=== PATIENT | male | born 1990 | race Caucasian/White ===

== ENCOUNTER 2017-08-01 13:44 | Observation (INO) | payer MEDICAID ==
[2017-08-01] MEDS ORDERED: ONDANSETRON HCL INJ/PF 4 MG/2 ML SDV IV ONE (15:16)
[2017-08-01] MEDS ORDERED: RINGERS SOLUTION,LACTATED 1,000 ML IV ONE (15:16)
--- NOTE | 2017-08-01 15:16 | ER Document Report ---
ED General - General Mode of Arrival: Ambulatory Information source: Patient TRAVEL OUTSIDE OF THE [place] IN LAST 30 DAYS: No <LINDA PLASCENCIA - Last Filed: 08/01/17 17:13> <FE LEWIS - Last Filed: 08/02/17 00:52> - General Chief Complaint: Vomiting Stated Complaint: VOMITING Time Seen by Provider: 08/01/17 15:06 Notes: Patient is a 26-year-old male with a history of intracranial hemorrhage at with cerebral palsy who presents to the emergency department today with complaints of an episode of "appearing pale, almost waxy" with associated projectile vomiting x2. Caregiver at bedside states the patient's vomit was brown in color. Caregiver states the patient's blood pressure was 88/54 and his systolic pressures are usually in the 100s. Caregiver states the patient had a cough yesterday and was given Robitussin. Caregiver mentions that the patients abdomen is distended, she goes on to state that the patient has had bouts of constipation in the past but he did have a normal bowel movement this morning at 0600. Caregiver denies any fevers. (LINDA PLASCENCIA) - Related Data Allergies/Adverse Reactions: Penicillins Adverse Reaction (Mild, Verified 03/04/16 15:48) Sulfa (Sulfonamide Antibiotics) Adverse Reaction (Verified 03/04/16 15:48) Past Medical History - General Information source: [facility] Records, Outside Facility Records - caregiver at bedside - Social History Smoking Status: Never Smoker Cigarette use (# per day): No Frequency of alcohol use: None Drug Abuse: None Lives with: Jail - [facility] Family History: Reviewed & Not Pertinent Neurological Medical History: Reports: Hx Seizures - Tonic-clonic GI Medical History: Reports: Hx Hiatal Hernia Past Surgical History: Reports: Hx Abdominal Surgery - shunt drain removed from abdomen, Hx Neurologic Surgery - shunt for stage IV brain bleed, Hx Orthopedic Surgery - bilateral hip surgery, Hx Tonsillectomy - Immunizations Hx Diphtheria, Pertussis, Tetanus Vaccination: Yes <LINDA PLASCENCIA - Last Filed: 08/01/17 17:13> Review of Systems - Review of Systems Constitutional: denies: Fever EENT: No symptoms reported Cardiovascular: See HPI, Other - hypotensive Respiratory: See HPI, Cough Gastrointestinal: See HPI, Abdomen distended, Vomiting Genitourinary: No symptoms reported Male Genitourinary: No symptoms reported Musculoskeletal: No symptoms reported Skin: No symptoms reported Hematologic/Lymphatic: No symptoms reported Neurological/Psychological: No symptoms reported -: Yes All other systems reviewed and negative <LINDA PLASCENCIA - Last Filed: 08/01/17 17:13> <FE LEWIS - Last Filed: 08/02/17 00:52> - Review of Systems Notes: given by caregiver at bedside (LINDA PLASCENCIA) Physical Exam <LINDA PLASCENCIA - Last Filed: 08/01/17 17:13> <FE LEWIS - Last Filed: 08/02/17 00:52> - Vital signs Vitals: Resp 16 08/01/17 14:09 - Notes Notes: PHYSICAL EXAM GENERAL: Awake. Neurologically at baseline according to caregiver. No acute distress. HEAD: Normocephalic, atraumatic. Palpable shunt which does not seem to cause distress with palpation. EYES: Pupils equal, round, and reactive to light. Extraocular movements intact. Dark circles under eyes bilaterally. Disconjugate gaze. ENT: Oral mucosa moist, tongue midline. NECK: Full range of motion. Supple. Trachea midline. LUNGS: Clear to auscultation bilaterally, no wheezes, rales, or rhonchi. No respiratory distress. HEART: Tachycardic, regular rhythm. No murmurs, gallops, or rubs. ABDOMEN: Semi-firm, distended, hyperactive bowel sounds present in all 4 quadrants, some tympany, no apparent tenderness with palpation. No guarding, rigidity, or rebound. EXTREMITIES: Contractures to bilateral upper extremities with spontaneous movement bilaterally, wiggles toes spontaneously, chronic deformity of right ankle, similar but less pronounced deformity of left ankle. No edema, radial and dorsalis pedis pulses 2/4 bilaterally. No cyanosis. NEUROLOGICAL: At baseline according to caregiver. Moment of speech which is incomprehensible. PSYCH: Baseline according to caregiver at bedside SKIN: Warm, dry, normal turgor. No rashes or lesions noted. (LINDA PLASCENCIA) Course <LINDA PLASCENCIA - Last Filed: 08/01/17 17:13> - Laboratory Result Diagrams: 08/01/17 17:13 08/01/17 17:13 <FE LEWIS - Last Filed: 08/02/17 00:52> - Re-evaluation Re-evalutation: 08/01/17 21:24 CBC shows slight leukocytosis 11.4, mild anemia at 13.0 hemoglobin, platelets low at 125, chemistries unremarkable with the exception of an elevated glucose at 311, acute abdominal series shows gas distended loops of small and large bowel presumably representing ileus, no definite obstruction. CT scan of the abdomen and pelvis is limited by motion however it shows a large amount of distal colonic stool. Patient was to have a soapsuds and mineral oil enema here however he is in hallway beds we cannot perform there. Patient does live in a custodial with an [employer] SPECIALIST. At this time as the patient has been waiting several hours to have this performed the caregiver would like to know if they could do the enema at the custodial. As he has medical staff there I am willing to let them try an enema , if it improves his symptoms and they get a large amount of stool out patient may stay home with MiraLAX once a day otherwise they should return if there is no stool, the vomiting worsens, he develops fevers or there are any new or concerning symptoms. 08/01/17 22:43 Patient been given Reglan for his nausea, patient is now tachycardic and appears somewhat anxious, moving around in the bed. Due to the tachycardia patient will not be discharged home at this time. He has his Lamictal. Patient will be given his Lamictal, patient will stay until we have done the enema and he has been rechecked, if his tachycardia and discomfort resolves he will still be discharged, if it persists we will consult surgery. 08/02/17 00:02 Patient has been given Benadryl, is now sleeping, no longer in any distress, given enema, awaiting results. 08/02/17 00:40 Patient rechecked, still sleeping, no distress, abdominal palpation patient does not have any tenderness, does not wake up during abdominal examination. There is a large firm mass in the center his abdomen that I initially thought was stool but nurses at bedside state that that is always there and a neurosurgeon has actually told him that as his spine from such a severe curvature. Rectal examination was performed at this time as the patient received the enema but has not had any bowel movement. Minimal amount of soft stool was found but no impaction, nerve no firm stool, no indication for disimpaction. Given the distention on his CAT scan I am concerned for discharging this patient home particularly with the projectile vomiting. I have consulted with Dr. Mosley the surgeon on-call who agrees to come to the emergency department and consult on this patient. 08/02/17 00:51 He recommends given magnesium citrate and Dulcolax suppositories, he will continue to monitor the patient. (FE LEWIS) - Vital Signs Vital signs: Temp Pulse Resp BP Pulse Ox 16 08/01/17 14:09 - Laboratory Laboratory results interpreted by me: 08/01/17 08/01/17 17:13 17:13 WBC 11.4 H Hgb 13.0 L MCV 74 L MCH 23.6 L MCHC 31.9 L RDW 16.8 H Plt Count 125 L Seg Neutrophils % 87.2 H Lymphocytes % 7.2 L Absolute Neutrophils 10.0 H Glucose 311 H Discharge <LINDA PLASCENCIA - Last Filed: 08/01/17 17:13> - Discharge Admitting Provider: Surgicalist - Dimitri Unit Admitted: Surgical Floor <FE LEWIS - Last Filed: 08/02/17 00:52> - Discharge Clinical Impression: Abdominal distension, Ileus Constipation Qualifiers: Constipation type: unspecified constipation type Qualified Code(s): K59.00 - Constipation, unspecified Vomiting Qualifiers: Vomiting type: unspecified Vomiting Intractability: non-intractable Nausea presence: unspecified Qualified Code(s): R11.10 - Vomiting, unspecified Condition: Fair Disposition: ADMITTED OBSERVATION Additional Instructions: If after you give him the soapsuds and mineral oil enema at home he does not have a bowel movement you should return to the emergency department. Please also return should he develop further vomiting, any fevers or worsening abdominal pain. Constipation Constipation is a common problem. Constipation is a common cause of abdominal pain, but sometimes causes no symptoms at all. Causes of constipation include certain medications, dehydration, diets, inactivity, and low-fiber intake. Rarely, it can be a symptom of underlying disease. The physician has evaluated you for this. Avoid constipation by eating a diet high in fiber, fruits, and vegetables. Drink plenty of liquids. If possible, avoid constipating medicines like narcotic pain medication. Some vitamin tablets can cause constipation. Stool softeners may be needed for difficult cases. Please dissolve 1 scoop of MiraLAX in a glass of water once a day to treat constipation. You may increase to twice a day if needed to create soft bowel movements and you may decrease to every other day if you develop diarrhea. This can be used daily. Laxatives are useful for occasional constipation. You should use them only when necessary. Too-frequent use can make your bowels dependent on them. Some over the counter laxatives available without prescription are: Milk of Magnesia, 1-2 tablespoons twice a day Dulcolax, 5 mg pill or 10 mg suppository. Citrate of Magnesia, 4-5 ounces a day for a day or two For acute constipation, Fleet's Enemas and Dulcolax suppositories are helpful. Chronic, prison use of laxatives or enemas is not a good idea. Your bowel may become dependant on them. You do not need to have a bowel movement every day. Many people do fine with a bowel movement every three or four days. You should call your doctor or return for re-evaluation if you pass blood in the stool, or if you develop fever or increasing abdominal pain. Referrals: DASH BARILLAS MD [Primary Care Provider] - Follow up in 3-5 days Scribe Documentation - Scribe Written by Arsen:: Arsen Fiore, 08/01/2017 1711 acting as scribe for :: Zoe <LINDA PLASCENCIA - Last Filed: 08/01/17 17:13>
--- NOTE | 2017-08-01 15:57 | RADIOLOGY REPORT (SQ) ---
EXAM DESCRIPTION: ACUTE ABDOMEN SERIES COMPLETED DATE/TIME: 08/01/2017 3:48 pm REASON FOR STUDY: abd distention, possible SBO, vomiting COMPARISON: 01/26/2015 NUMBER OF VIEWS: Three views. TECHNIQUE: Frontal chest, supine abdomen and upright/decubitus abdomen radiographic images acquired. LIMITATIONS: Patient positioning. FINDINGS: CHEST: Lungs clear of infiltrates. FREE AIR: None. No abnormal gas collections. BOWEL GAS PATTERN: Gas distended loops of both small and large bowel. No definite air-fluid levels. CALCIFICATIONS: No suspicious calcifications. HARDWARE: SALES CLERK SUPERVISOR shunt catheter. SOFT TISSUES: No gross mass or suggestion of organomegaly. BONES: No acute fracture. No worrisome bone lesions. OTHER: No other significant finding. IMPRESSION: GAS DISTENDED LOOPS OF SMALL AND LARGE BOWEL PRESUMABLY REPRESENTING ILEUS. NO DEFINITE OBSTRUCTION. TECHNICAL DOCUMENTATION: JOB ID: [id number] [employer]- All Rights Reserved
[2017-08-01 17:36] LABS: ABSOLUTE LYMPHOCYTES (AUTO) 0.8 10^3/uL (0.5-4.7); ABSOLUTE MONOCYTES (AUTO) 0.6 10^3/uL (0.1-1.4); BASOPHILS % (AUTO) 0.4 % (0-2); EOSINOPHILS % (AUTO) 0.2 % (0-6); HEMATOCRIT 40.9 % (37.9-51.0); LYMPHOCYTES % (AUTO) 7.2 % (13-45); MEAN CORPUSCULAR HEMOGLOBIN 23.6 pg (27.0-33.4); MEAN CORPUSCULAR HGB CONC 31.9 g/dL (32.0-36.0); MEAN CORPUSCULAR VOLUME 74 fl (80-97); PLATELET COUNT 125 10^3/uL (150-450); RED BLOOD COUNT 5.51 10^6/uL (4.35-5.55); RED CELL DISTRIBUTION WIDTH 16.8 % (11.5-14.0); SEGMENTED NEUTROPHILS % (AUTO) 87.2 % (42-78); TOTAL CELLS COUNTED % (AUTO) 100 %; WHITE BLOOD COUNT 11.4 10^3/uL (4.0-10.5)
[2017-08-01 17:39] LABS: ALANINE AMINOTRANSFERASE 26 U/L (21-72); ALBUMIN 4.3 g/dL (3.5-5.0); ALKALINE PHOSPHATASE 111 U/L (38-126); ANION GAP 11 (5-19); ASPARTATE AMINO TRANSFERASE 33 U/L (17-59); BILIRUBIN,DIRECT 0.3 mg/dL (0.0-0.4); BILIRUBIN,TOTAL 0.3 mg/dL (0.2-1.3); BLOOD UREA NITROGEN 15 mg/dL (7-20); CALCIUM 9.9 mg/dL (8.4-10.2); CARBON DIOXIDE 29 mmol/L (22-30); CHLORIDE 103 mmol/L (98-107); GLUCOSE 311 mg/dL (75-110); POTASSIUM 3.6 mmol/L (3.6-5.0); SODIUM 143.1 mmol/L (137-145); TOTAL PROTEIN 7.5 g/dL (6.3-8.2)
--- NOTE | 2017-08-01 18:26 | RADIOLOGY REPORT (SQ) ---
EXAM DESCRIPTION: CT ABD/PELVIS WITH IV ORAL COMPLETED DATE/TIME: 08/01/2017 6:12 pm REASON FOR STUDY: abd distention, suspect SBO COMPARISON: Radiographs from earlier. TECHNIQUE: CT scan of the abdomen and pelvis performed using helical scanning technique with dynamic intravenous contrast injection. No oral contrast. Images reviewed with lung, soft tissue, and bone windows. Reconstructed coronal and sagittal MPR images reviewed. Delayed images for evaluation of the urinary system also acquired. All images stored on PACS. All CT scanners at this facility use dose modulation, iterative reconstruction, and/or weight based d osing when appropriate to reduce radiation dose to as low as reasonably achievable (ALARA). [facility]: Dose Right [facility]: CareDose [facility]: Dose Right [facility]: Teradose 4D [facility]: Ntractive CONTRAST TYPE AND DOSE: contrast/concentration: Isovue 370.00 mg/ml; Total Contrast Delivered: 74.0 ml; Total Saline Delivered: 66.0 ml RENAL FUNCTION: None required. The patient is less than 50 years old. RADIATION DOSE: CT Rad equipment meets quality standard of care and radiation dose reduction techniq ues were employed. CTDIvol: 10.9 - 14.1 mGy. DLP: 1171 mGy-cm.. LIMITATIONS: Arm positioning over the lower chest. Mild motion. Overall moderate limitation. FINDINGS: LOWER CHEST: Small left pleural effusion. Sizable hiatal hernia with gastric distention g enerally. LIVER: No gross lesion. SPLEEN: No gross lesion. PANCREAS: Generally normal. GALLBLADDER: Surgically absent. ADRENAL GLANDS: Poorly seen, no gross mass. RIGHT KIDNEY AND URETER: No obstruction. LEFT KIDNEY AND URETER: No obstruction. AORTA AND VESSELS: No gross arterial occlusion or aortic aneurysm or dissection evident. No suggesti on of venous clot. RETROPERITONEUM: No retroperitoneal adenopathy, hemorrhage or masses. BOWEL AND PERITONEAL CAVITY: Gastric distention. Numerous fluid-filled loops of small bowel. This l ooks relatively diffuse including into the distal small bowel. As above, motion limits. There is fl uid in the proximal colon with a large amount of formed stool in the redundant distal colon. APPENDIX: Normal. PELVIS: No free fluid. Bladder looks relatively unremarkable. ABDOMINAL WALL: No hernia or mass detected. BONES: Pronounced scoliosis and dysplastic appearance of pelvis. 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 No fracture identified. No worrisome bone lesion. OTHER: No other significant finding. IMPRESSION: 1. Limited. 2. As seen radiographically, ileus is suspected. Although obstruction is a possibility, no clear point of obstruction is identified allowing for the limitations. Of note, th ere is a large amount of distal colonic stool. TECHNICAL DOCUMENTATION: JOB ID: [id number] Quality ID # [id number]: Final reports with documentation of one or more dose reduction techniques (e.g., Au tomated exposure control, adjustment of the mA and/or kV according to patient size, use of iterative reconstruction technique) 2010 [employer]- All Rights Reserved
[2017-08-01] MEDS ORDERED: METOCLOPRAMIDE HCL INJ/PF 10 MG/2 ML SDV IV ONE (21:24)
[2017-08-01] MEDS ORDERED: MINERAL OIL 30 ML UDCUP PR ONE (21:45)
[2017-08-01] MEDS ORDERED: DIPHENHYDRAMINE HCL 50 MG/ML VIAL IV ONE (22:42)
[2017-08-02] MEDS ORDERED: BISACODYL 5 MG TABEC PO ONE (00:54)
[2017-08-02] MEDS ORDERED: MAGNESIUM CITRATE 296 ML BOTTLE PO ONE (00:54)
--- NOTE | 2017-08-02 01:18 | PDOC H&P ---
History of Present Illness Admission Date/PCP: DASH BARILLAS MD 08/02/17 Patient complains of: vomiting History of Present Illness: BLAIRE JAMESON is a 26 year old male mentally delayed male with CP brought to Er by caretakers with a hx of vomiting x 2 at home this afternoon. However, no vomiting witnessed by the nurses in the ER. Patient is non verbal and hx is obtained from caretakers. Last BM yesterday and today with soft stools. Abdominal obstructive views show possible ileus, CT scan A/P is negative for obstruction with fluid in stomach and small bowel as well as large amount of fecal matter in the distal colon; no free aor or free fluid. 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 Past Medical History Cardiac Medical History: Denies: Coronary Artery Disease, Myocardial Infarction, Hypertension Pulmonary Medical History: Denies: Asthma, Bronchitis, Chronic Obstructive Pulmonary Disease (COPD), Pneumonia Neurological Medical History: Reports: Seizures - Tonic-clonic GI Medical History: Reports: Hiatal Hernia Musculoskeltal Medical History: Reports: Other - cerebral palsy, mental retardation Denies: Arthritis Hematology: Reports: Anemia - ITP Past Surgical History Past Surgical History: Reports: Orthopedic Surgery - bilateral hip surgery, Tonsillectomy, Other - Ventricular-peritoneal shunt insertion Social History [facility]: [facility] Smoking Status: Never Smoker Family History Family History: Reviewed & Not Pertinent Parental Family History Reviewed: Yes Children Family History Reviewed: Yes Sibling(s) Family History Reviewed.: Yes Medication/Allergy Home Medications: Calcium Carbonate [Calcium] 500 mg PO DAILY 02/27/15 Clindamycin Phos/Skin Clnsr 19 [Clindacin Etz Kit] 1 applic TP DAILY 02/27/15 Diazepam [Diastat Acudial 10 Mg/2 Ml Rectal Gel] 10 mg ND ASDIR PRN 02/27/15 Lamotrigine [Lamictal 100 mg Tablet] 200 mg PO QHS 02/27/15 Polyethylene Glycol 3350 [Miralax Powder 17 gm/Packet] 1 packet PO DAILY Sennosides [Ex-Lax Maximum Relief] 2 tab PO ASDIR PRN 02/27/15 Omeprazole Magnesium [Prilosec Otc] 20 mg PO BID 02/29/16 Allergies/Adverse Reactions: Penicillins Adverse Reaction (Mild, Verified 03/04/16 15:48) Sulfa (Sulfonamide Antibiotics) Adverse Reaction (Verified 03/04/16 15:48) Physical Exam Vital Signs: Temp Pulse Resp BP Pulse Ox 16 08/01/17 14:09 General appearance: PRESENT: no acute distress, other - sleepy but arousable Respiratory exam: PRESENT: clear to auscultation ruperto Cardiovascular exam: PRESENT: RRR GI/Abdominal exam: PRESENT: distended, normal bowel sounds, soft, other - RUQ scar, palpable WAX COATING MACHINE TENDER shunt Neurological exam: PRESENT: other - Four extermity spasticity Results Laboratory Results: 08/01/17 17:13 08/01/17 17:13 18 08/01/17 17:13 17:13 WBC 11.4 H RBC 5.51 Hgb 13.0 L Hct 40.9 MCV 74 L MCH 23.6 L MCHC 31.9 L RDW 16.8 H Plt Count 125 L Seg Neutrophils % 87.2 H Lymphocytes % 7.2 L Monocytes % 5.0 Eosinophils % 0.2 Basophils % 0.4 Absolute Neutrophils 10.0 H Absolute Lymphocytes 0.8 Absolute Monocytes 0.6 Absolute Eosinophils 0.0 Absolute Basophils 0.0 Sodium 143.1 Potassium 3.6 Chloride 103 Carbon Dioxide 29 Anion Gap 11 BUN 15 Creatinine 0.61 Est GFR ( Amer) > 60 Est GFR (Non-Af Amer) > 60 Glucose 311 H Calcium 9.9 Total Bilirubin 0.3 AST 33 ALT 26 Alkaline Phosphatase 111 Total Protein 7.5 Albumin 4.3 Impressions: Abdomen/Pelvis CT 08/01/17 00:00 IMPRESSION: 1. Limited. 2. As seen radiographically, ileus is suspected. Although obstruction is a possibility, no clear point of obstruction is identified allowing for the limitations. Of note, there is a large amount of distal colonic stool. Acute Abdomen Series 08/01/17 15:16 IMPRESSION: GAS DISTENDED LOOPS OF SMALL AND LARGE BOWEL PRESUMABLY REPRESENTING ILEUS. NO DEFINITE OBSTRUCTION. Assessment & Plan - Diagnosis (1) Cerebral palsy, unspecified Is this a current diagnosis for this admission?: Yes (3) Vomiting Qualifiers: Vomiting type: unspecified Nausea presence: unspecified Qualified Code(s) : R11.10 - Vomiting, unspecified Is this a current diagnosis for this admission?: Yes - Plan Summary Plan Summary: A/ 26 y/o male with MR and CP recent vomiting at home x 2 reported by caretakers Stools yesterday and today X-ray of abdomen and CT scan A/P negative for surgical condition: large amount of stools identified in the distal colon No surgical condition identified at this point on physical exam as well P/ Insert NGT to decompress the stomach Mg Citrate 1 botel via NGT Dulcolax 20 mg po Dulcolax suppository
[2017-08-02] MEDS: BISACODYL 10 MG SUPP.RECT PR SCH ×2 (02:50→03:52)
[2017-08-02 04:54] LABS: AMORPHOUS SEDIMENT,URINE 1+ /HPF; APPEARANCE,URINE CLOUDY; BILIRUBIN,URINE NEGATIVE (NEGATIVE); COLOR,URINE YELLOW; GLUCOSE, URINE >=500 mg/dL (NEGATIVE); KETONES,URINE TRACE mg/dL (NEGATIVE); LEUKOCYTE ESTERASE,URINE NEGATIVE (NEGATIVE); NITRITE,URINE NEGATIVE (NEGATIVE); PROTEIN,URINE NEGATIVE (NEGATIVE); URINE SPECIFIC GRAVITY 1.021; UROBILINOGEN,URINE NEGATIVE mg/dL (<2.0)
--- NOTE | 2017-08-02 11:10 | PDOC PROGRESS REPORT ---
Subjective Progress Note for:: 08/02/17 Subjective:: comfortable; walker movement overnight, no vomiting, tolerating po Reason For Visit: CONSTIPATION,VOMITING,ABDOMINAL DISTENSION ILEUS Physical Exam Vital Signs: Temp Pulse Resp BP Pulse Ox 98.3 F 103 H 17 104/68 98 08/02/17 10:00 08/02/17 10:00 08/02/17 10:00 08/02/17 10:00 08/02/17 10:00 Intake & Output 08/01/17 08/02/17 08/03/17 06:59 06:59 06:59 Output Total 100 Balance -100 General appearance: PRESENT: no acute distress Head exam: PRESENT: atraumatic Respiratory exam: PRESENT: clear to auscultation ruperto Cardiovascular exam: PRESENT: RRR GI/Abdominal exam: PRESENT: soft Results Laboratory Results: 08/02/17 03:34 Urine Color YELLOW Urine Appearance CLOUDY Urine pH 7.0 Ur Specific [place] 1.021 Urine Protein NEGATIVE Urine Glucose (UA) >=500 H Urine Ketones TRACE H Urine Blood SMALL H Urine Nitrite NEGATIVE Ur Leukocyte Esterase NEGATIVE Urine RBC (Auto) 1 Impressions: Abdomen/Pelvis CT 08/01/17 00:00 IMPRESSION: 1. Limited. 2. As seen radiographically, ileus is suspected. Although obstruction is a possibility, no clear point of obstruction is identified allowing for the limitations. Of note, there is a large amount of distal colonic stool. Acute Abdomen Series 08/01/17 15:16 IMPRESSION: GAS DISTENDED LOOPS OF SMALL AND LARGE BOWEL PRESUMABLY REPRESENTING ILEUS. NO DEFINITE OBSTRUCTION. Assessment & Plan - Diagnosis (1) Cerebral palsy, unspecified Is this a current diagnosis for this admission?: Yes (3) Vomiting Qualifiers: Vomiting type: unspecified Nausea presence: unspecified Qualified Code(s) : R11.10 - Vomiting, unspecified Is this a current diagnosis for this admission?: Yes - Plan Summary Plan Summary: A/ resolved constipation po tolerated bowel movement overnight P/ d/c to NH today no General Surgery f/u needed resume meds, diet can bath/shower
--- NOTE | 2017-08-02 11:49 | DISCHARGE SUMMARY E ---
Discharge Summary NAME: BLAIRE JAMESON : 1990 AGE: 26Y ADMITTED: 08/02/2017 DISCHARGED: 08/02/2017 FINAL DIAGNOSES: 1. Fecal impaction. 2. CEREBRAL PALSY. 3. MENTAL RETARDATION. PROCEDURES: None. HOSPITAL COURSE: This is a 26-year-old mentally retarded male with cerebral palsy who came to the hospital with a history of emesis, and a CAT scan of the abdomen and pelvis was done revealing a large amount of fecal matter in the colon. The patient was admitted and a nasogastric tube was inserted. The patient was given magnesium citrate p.o. together with Dulcolax and Dulcolax suppositories, and his bowels moved overnight and able to tolerate po well. The patient was therefore discharged the following day in satisfactory condition. DISCHARGE ORDERS: The patient will discharge to the [facility] on 08/02/2017. He was given his preadmission medications. He was given his regular diet. No followup needed with the Surgery Clinic. Activity as tolerated. The patient can shower or bathe. DICTATING PHYSICIAN: VENICE BAILEY M.D. [id number] PHY#: [id number] ID: [id number] JOB#: [id number] ACCT: [id number] cc:Cara RAMÍREZ M.D. [facility], > [facility]
[2017-08-02 13:29] VITALS: BP 110/64
== END 2017-08-02 11:13 | disposition home health service (06) ==
LOC: ER 13:44 → EH 08-02 00:57
PROVIDERS: ATTEND Surgery
DX: K56.41 Fecal impaction (principal); G80.9 Cerebral palsy, unspecified; F79 Unspecified intellectual disabilities; I95.9 Hypotension, unspecified; D64.9 Anemia, unspecified; R73.09 Other abnormal glucose; R00.0 Tachycardia, unspecified; G40.89 Other seizures; Z79.899 Other long term (current) drug therapy; Z98.890 Other specified postprocedural states; Z87.820 Personal history of traumatic brain injury; Z98.2 Presence of cerebrospinal fluid drainage device
CPT/HCPCS: 99285; 96361; 96374; 96375; 36415; 85025; 80053; 81001; 74022; 74177; J3490 ×3; J1200; J2765; J2405; J7120

== ENCOUNTER → 2018-03-16 | Outpatient (CLI) | payer MEDICAID ==
--- NOTE | 2018-03-16 15:11 | RADIOLOGY REPORT (SQ) ---
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 Images reviewed wi th bone, brain and subdural windows. Additional sagittal and coronal reconstructions were generated. Images stored on PACS. All CT scanners at this facility use dose modulation, iterative reconstruction, and/or weight based d osing when appropriate to reduce radiation dose to as low as reasonably achievable (ALARA). [facility]: Dose Right [facility]: CareDose [facility]: Dose Right [facility]: Teradose 4D [facility]: Surgimatix RADIATION DOSE: CT Rad equipment meets quality standard of care and radiation dose reduction techniq ues were employed. CTDIvol: 21.4 - 21.5 mGy. DLP: 799 mGy-cm. mGy. LIMITATIONS: Motion artifact throughout the study. FINDINGS: There is motion artifact throughout the study. Patient has a left parietal intraventricular drainage catheter, with the tip near the foramen of Monr o anterior 3rd ventricle. The lateral and 3rd ventricles are slit-like, unchanged from 04/29/2016. No CT evidence of acute intracranial hemorrhage, gross mass effect or midline shift. Agenesis of the corpus callosum. IMPRESSION: Very limited study due to patient motion artifact. No change in position of the left pa rietal intraventricular drainage catheter or configuration of slit-like lateral and 3rd ventricles. EVIDENCE OF ACUTE STROKE: NO. COMMENT: Quality ID # [id number]: Final reports with documentation of one or more dose reduction techniques (e.g., Automated exposure control, adjustment of the mA and/or kV according to patient size, use of iterative reconstruction technique) TECHNICAL DOCUMENTATION: JOB ID: [id number] [employer]- All Rights Reserved Reading location - IP/workstation name: [email or web address]
== END ==
LOC: RAD 08:50
PROVIDERS: ATTEND Physician Assistant
DX: G91.9 Hydrocephalus, unspecified (principal)
CPT/HCPCS: 70450

== ENCOUNTER 2019-02-22 15:49 | Day surgery (SDC) | payer MEDICAID ==
[2019-02-22] MEDS ORDERED: ONDANSETRON HCL INJ/PF 4 MG/2 ML SDV ONE (16:24)
[2019-02-22] MEDS ORDERED: DIPHENHYDRAMINE HCL 50 MG/ML VIAL ONE (16:24)
[2019-02-22] MEDS ORDERED: FLUMAZENIL INJ 0.5 MG/5 ML VIAL ONE (16:25)
[2019-02-22] MEDS ORDERED: GLUCAGON,HUMAN RECOMB 1 MG INJ ONE (16:25)
[2019-02-22] MEDS ORDERED: EPINEPHRINE INJ 1 MG/10 ML DISP.SYRIN ONE (16:25)
[2019-02-22] MEDS ORDERED: NALOXONE HCL INJ/PF 0.4 MG/1 ML SDV ONE (16:25)
[2019-02-22] MEDS: MIDAZOLAM 2 MG/2 ML INJ ONE ×2 (16:54→17:03)
[2019-02-22] MEDS: FENTANYL CITRATE INJ/PF 100 MCG/2 ML AMPUL ONE ×3 (16:56→17:30)
--- NOTE | 2019-02-22 17:57 | Operative Report ---
Operative Report DATE OF SURGERY: 02/22/19 Operative Report: Pre-op diagnosis: History of colon polyps Post-op diagnosis: 1. Distal transverse colon polyp 2. Redundant and twisted colon. 3. Dilated colon. Surgery: Colonoscopy with polypectomy Medications: Versed 2mg, Fentanyl 75mcg IV push Tissue removed: Colon polyp Procedure: After informed consent obtained from patient, conscious sedation was achieved. A digital rectal examination was performed and this was unremarkable. The colonoscope was inserted into the rectum and advanced to the cecum. The appendiceal orifice and the terminal ileum were both identified. The mucosa was examined into details as the colonoscope was slowly pulled out of the patient. The endoscope was retroflexed in the rectum. Patient tolerated the procedure well. Findings Cecum: Markedly dilated Ascending colon: Dilated Transverse colon: 12 to 15 mm polyp noted at the distal transverse colon around the splenic flexure. This area was previously tattooed. Polyp was removed with a hot snare Descending colon: Dilated Sigmoid colon: Normal Rectum: Normal except for internal hemorrhoids Plan: Await pathology. Repeat colonoscopy in 3 years OPERATION: .
[2019-02-22 18:40] VITALS: BP 123/76
== END 2019-02-22 18:40 | disposition home or self-care (01) ==
LOC: END 15:49
PROVIDERS: ATTEND Internal Medicine Gastroenterology
DX: Z12.11 Encounter for screening for malignant neoplasm of colon (principal); D12.3 Benign neoplasm of transverse colon; K59.39 Other megacolon; K56.2 Volvulus; Q43.8 Other specified congenital malformations of intestine; K64.8 Other hemorrhoids; K52.9 Noninfective gastroenteritis and colitis, unspecified; K44.9 Diaphragmatic hernia without obstruction or gangrene; K21.9 Gastro-esophageal reflux disease without esophagitis; G40.909 Epilepsy, unspecified, not intractable, without status epilepticus; G80.9 Cerebral palsy, unspecified; Z79.899 Other long term (current) drug therapy
CPT/HCPCS: 45384; 88305 ×2; J2250; J3010; J0171; J1200; J1610; J2310; J2405; J3490

== ENCOUNTER → 2020-04-26 | Outpatient (CLI) | payer MEDICAID ==
--- NOTE | 2020-04-26 10:31 | RADIOLOGY REPORT (SQ) ---
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 Images reviewed wi th bone, brain and subdural windows. Additional sagittal and coronal reconstructions were generated. Images stored on PACS. All CT scanners at this facility use dose modulation, iterative reconstruction, and/or weight based d osing when appropriate to reduce radiation dose to as low as reasonably achievable (ALARA). [facility]: Dose Right [facility]: CareDose [facility]: Dose Right [facility]: Teradose 4D [facility]: [employer] RADIATION DOSE: CT Rad equipment meets quality standard of care and radiation dose reduction techniq ues were employed. CTDIvol: 49.0 - 50.2 mGy. DLP: 2146 mGy-cm. mGy. LIMITATIONS: Motion artifact. FINDINGS: Shunt catheter entering left parietal calvarium with tip near the foramen of Monro. Slit- like lateral and 3rd ventricles without significant change. Agenesis of the corpus callosum. No maría dence of acute infarct, mass, hemorrhage or extra-axial fluid collection. IMPRESSION: Limitations due to motion. 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 No significant change. EVIDENCE OF ACUTE STROKE: NO. COMMENT: Quality ID # [id number]: Final reports with documentation of one or more dose reduction techniques (e.g., Automated exposure control, adjustment of the mA and/or kV according to patient size, use of iterative reconstruction technique) TECHNICAL DOCUMENTATION: JOB ID: [id number] 2010 vendome 1699- All Rights Reserved Reading location - IP/workstation name: [email or web address]
--- OUTSIDE RECORDS SUMMARY | 2020-04-27 15:01 | XMS REPORT ---
:1990 [facility] [address] [place] [id number] Care Team Providers Name Role Phone Obdulio BARILLAS Primary Care Physician Unavailable Andrés GANT Attending Clinician Unavailable Allergies, Adverse Reactions, Alerts Allergy Name Allergy Status Severity Reaction(s) Onset Inactive Treat ing Comments Type Date Date Clinician Metocloprami Propensity Active 2017-06 de Hcl to adverse 0-22 reactions 00:00: to drug 00 Penicillins Propensity Active Rash to adverse reactions to drug Sulfa Propensity Active Rash (Sulfonamide to adverse Antibiotics) reactions to drug Penicillins Propensity Active Rash to adverse reactions to drug Sulfa Propensity Active Rash (Sulfonamide to adverse Antibiotics) reactions to drug Medications Ordered Filled Start Stop Current Ordering Indication Dosage Frequency Signature Comments Components Medication Medication Date Date Medication? Clinician (SIG) Name Name VALIUM 10 2020-0 2020- No MG TABLET 2- 00:00: 00:00 00 :00 VALIUM 10 2020-0 2020- No MG TABLET 06-21 00:00: 00:00 00 :00 EPSOM SALT 2018-06 2019- No CRYSTALS 0-31 11-05 00:00: 00:00 00 :00 EX-LAX 2018-0 Yes PILLS 9-14 00:00: 00 GAS-X 2018-0 No EX-STR 125 9-10 MG TAB CHEW 00:00: 00 MIRALAX 2018-0 2019- No POWDER 02-22 00:00: 00:00 00 :00 DULCOLAX EC 2018- No 5 MG TABLET 02-21 00:00: 00 MIRALAX 2018-0 2019- No POWDER 02-21 00:00: 00:00 00 :00 Clear 2018-0 2019- No liquid diet 02-21 00:00: 00:00 00 :00 GAS-X 2018-0 2019- No EX-STR 125 9-09 09-10 MG TAB CHEW 00:00: 00:00 00 :00 MAGNESIUM 2019-0 2019- No CITRATE 908 09-08 SOLUTION 00:00: 00:00 00 :00 EX-LAX 2019-0 No 1 PILLS 8-23 00:00: 00 VALIUM 10 2019-0 2019- No 1 MG TABLET 6- 06- 00:00: 00:00 00 :00 Panoxyl 10% 2019-0 Yes Benzoyl 5-20 Peroxide 00:00: Acne 00 Foaming Wash CLINDAMYCIN 2019-0 Yes PH 1% 5-20 SOLUTION 00:00: 00 LAMICTAL XR 2019-0 No 4 100 MG 5-06 TABLET 00:00: 00 LAMOTRIGINE 2019-0 Yes 2 TAB 200MG 5-06 ER 00:00: 00 CALCIUM 2019-0 Yes 1 500+D 1- TABLET CHEW 00:00: 00 LAMICTAL XR 2019-0 No 3 100 MG 1-26 TABLET 00:00: 00 EX-LAX 2019-0 No 2 PILLS 1-26 00:00: 00 MIRALAX 2019-0 Yes 30 POWDER 1-26 00:00: 00 VALIUM 10 2018-1 2018- No 1 MG TABLET 2- 00:00: 00:00 00 :00 VALIUM 10 2018-1 2018- No 1 MG TABLET 2- 00:00: 00:00 00 :00 bisacodyl 2018-[address] 10 (FLEET) 10 0-22 mg mg/30 mL 11:38: rectally enema 56 once daily as needed OMEPRAZOLE 2018-[address] 20 MG 0-02 CAPSULE 00:00: 00 OMEPRAZOLE 2018-[address] 20 MG 0-02 CAPSULE 00:00: 00 EPIDUO 2018-0 No 0.1-2.5% 8-30 GEL PUMP 00:00: 00 EPIDUO 2018-0 Yes 0.1-2.5% 8-30 GEL PUMP 00:00: 00 FERROUS 2018-0 2018- No 1 SULFATE 325 7-31 07-31 MG TABLET 00:00: 00:00 00 :00 FERROUS 2018-0 2018- No 1 SULFATE 325 7-31 07-31 MG TABLET 00:00: 00:00 00 :00 VITAMIN 2018-0 No 1 C-500 MG 7-24 TABLET 00:00: 00 VITAMIN 2018-0 No 1 C-500 MG 7-24 TABLET 00:00: 00 FERROUS 2018-0 2018- No 1 SULFATE 325 7-24 07-31 MG TABLET 00:00: 00:00 00 :00 FERROUS 2018-0 2018- No 1 SULFATE 325 7-24 07-31 MG TABLET 00:00: 00:00 00 :00 FERROUS 2018-0 2018- No 1 SULFATE 325 7-18 07-23 MG TABLET 00:00: 00:00 00 :00 FERROUS 2017-0 2018- No 1 SULFATE 325 7-18 07-23 MG TABLET 00:00: 00:00 00 :00 Panoxyl 10% 2017-0 No Benzoyl 4-17 Peroxide 00:00: Acne 00 Foaming Wash Panoxyl 10% 2017-0 No Benzoyl 4-17 Peroxide 00:00: Acne 00 Foaming Wash CLINDAMYCIN 2017-0 2018- No 1 HCL 300 MG 3-17 -24 CAPSULE 00:00: 00:00 00 :00 CLINDAMYCIN 2018-0 2018- No 1 HCL 300 MG 3-17 -24 CAPSULE 00:00: 00:00 00 :00 CALCIUM 2018-0 No 1 500+D 3-01 TABLET CHEW 00:00: 00 MIRALAX 2018-0 No 30 POWDER 3-01 00:00: 00 EX-LAX 2018-0 No 2 PILLS 3-01 00:00: 00 CLINDAMYCIN 2018-0 No 1 1% 3-01 00:00: 00 FLEET 2018-0 No BISACODYL 3-01 10 MG ENEMA 00:00: 00 ZOFRAN 4 MG 2018-0 No 1 TABLET 3-01 00:00: 00 DIASTAT 2018-0 No ACUDIAL 3-01 5-7.5-10 MG 00:00: KT 00 REFRESH 2018-0 No TEARS 0.5% 3-01 EYE DROPS 00:00: 00 MYLANTA 2018-0 No 30 3-01 00:00: 00 LOPERAMIDE 2018-0 No 10 1 MG/5 ML 3-01 SOLUTION 00:00: 00 LOPERAMIDE 2018-0 No 1 2 MG TABLET 3-01 00:00: 00 CLINDAMYCIN 2018-0 No 1 1% 3-01 00:00: 00 FLEET 2018-0 Yes BISACODYL 3-01 10 MG ENEMA 00:00: 00 ZOFRAN 4 MG 2018-0 Yes 1 TABLET 3- 00:00: 00 DIASTAT 2017-0 Yes ACUDIAL 3-01 5-7.5-10 MG 00:00: KT 00 REFRESH 2017-0 Yes TEARS 0.5% 3- EYE DROPS 00:00: 00 ACETAMINOPH 0 Yes 20 EN 160 MG/5 3-01 ML BIRGIT 00:00: 00 MYLANTA 2018-0 Yes 30 3-01 00:00: 00 LOPERAMIDE 0 Yes 10 1 MG/5 ML 3-01 SOLUTION 00:00: 00 LOPERAMIDE 0 Yes 1 2 MG TABLET 3- 00:00: 00 ACETAMINOPH 0 No 2 EN 325 MG 2-01 TABLET 00:00: 00 ACETAMINOPH No 1 EN 650 MG 2-01 SUPPOS 00:00: 00 LOPERAMIDE 0 No 2 2 MG TABLET 2- 00:00: 00 LOPERAMIDE 0 No 20 1 MG/5 ML 2-01 LIQUID 00:00: 00 GUAIFENESIN 2017-0 No 15 100 MG/5 ML 2-01 SOLN 00:00: 00 AFRIN NO 0 No DRIP ORIG 2-01 PUMP MIST 00:00: 00 DIPHENHYDRA 0 No 10 MINE 12.5 2-01 MG/5 ML 00:00: 00 A & D 0 No 1 Ointment 2- 00:00: 00 HYDROCORTIS 2017-0 No ONE 1% 2-01 CREAM 00:00: 00 ACETAMINOPH 0 Yes 2 EN 325 MG 2-01 TABLET 00:00: 00 ACETAMINOPH 0 Yes 1 EN 650 MG 2-01 SUPPOS 00:00: 00 LOPERAMIDE 0 Yes 2 2 MG TABLET 2- 00:00: 00 LOPERAMIDE 0 Yes 20 1 MG/5 ML 2-01 LIQUID 00:00: 00 GUAIFENESIN 2017-0 Yes 15 100 MG/5 ML 2-01 SOLN 00:00: 00 AFRIN NO 2017-0 Yes DRIP ORIG 2-01 PUMP MIST 00:00: 00 DIPHENHYDRA 2017-0 Yes 10 MINE 12.5 2-01 MG/5 ML 00:00: 00 DIPHENHYDRA 2017-0 Yes 1 MINE 25 MG 2-01 CAPSULE 00:00: 00 A & D Yes Ointment 2- 00:00: 00 HYDROCORTIS Yes ONE 1% 2-01 CREAM 00:00: 00 EX-LAX, No Take by SENNOSIDES, 7-10 mouth once ORAL 12:40: a week. 21 lamoTRIgine Yes 300mg QD Take 300 (LAMICTAL) 1-19 mg by 100 MG 00:00: mouth once tablet 00 daily polyethylen Yes 17g Q.5D 17 g 2 e glycol 1-19 (two) (MIRALAX) 00:00: times powder 00 daily diazepam Yes (DIASTAT 1-19 ACUDIAL) 00:00: kit 00 polyethylen Yes 17g Q.5D 17 g 2 e glycol 1-19 (two) (MIRALAX) 00:00: times powder 00 daily EX-LAX, Yes Take by SENNOSIDES, mouth once ORAL a week. clindamycin Yes Q.5D Apply (CLEOCIN T) topically 1 % swab 2 (two) times daily. bisacodyl Yes 10mg Q24H Place 10 (FLEET) 10 mg mg/30 mL rectally enema once daily as needed calcium Yes 1{tbl} Take 1 carbonate-v tablet by itamin D3 mouth 2 (OS-KAMERON (two) 500+D) 500 times mg(1,250mg) daily with -200 unit meals. tablet omeprazole Yes 20mg Q.5D Take 20 mg (PRILOSEC) by mouth [address] (two) capsule times daily. ferrous Yes 325mg Q.[id number] Take 325 sulfate 325 [id number] mg by (65 FE) MG 3D mouth 3 tablet (three) times daily with meals ascorbic Yes 500mg QD Take 500 acid, mg by vitamin C, mouth once (VITAMIN C) daily 500 MG tablet Problems Condition Condition Condition Status Onset Resolution Last Treatin g Comments Name Details Category Date Date Treatment Clinician Date Scoliosis Scoliosis 90238656 Active 2012-12-22 associated associated 12-22 19:11:38 with other with other 00:00: condition condition 00 CP CP [id number] Active 2012-12-22 (cerebral (cerebral 12-22 19:11:35 palsy) palsy) 00:00: 00 Other Diagnosis Active idiopathic scoliosis, lumbar region Esophagitis Diagnosis Active , unspecified 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, unspecified eyelid Dry eye Diagnosis Active syndrome of unspecified lacrimal gland 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, unspecified site Cerebral Diagnosis Active palsy, unspecified 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 Intraventri Diagnosis Active cular hemorrhage, grade 4, of Presence of Diagnosis Active cerebrospin al fluid drainage device Unspecified Diagnosis Active optic atrophy Nontraumati Diagnosis Active c intracerebr al hemorrhage, unspecified Communicati Diagnosis Active ng hydrocephal us Gen Diagnosis Active idiopathic epilepsy, not intractable , w stat epi Cortical Diagnosis Active blindness, unspecified side of brain Hydrocephal Hydrocephal [id number] Active 2013-02-28 Overview: us us 18:19:19 vent-pl eu ral Precisio n 100 mm IVH IVH [id number] Active 2013-02-28 (intraventr (intraventr 18:19:22 icular icular hemorrhage) hemorrhage) Blindness Blindness [id number] Active 2013-02-28 18:19:25 Seizures Seizures [id number] Active 2013-02-28 18:19:27 Procedures This patient has no known procedures. Results This patient has no known results. Assessments Condition Name Status Diagnosis Date Treating Clinici an Communicating hydrocephalus ([facility]) Unknown Encounters Start End Encounter Admission Attending Care Care Encounter ID Date/Time Date/Time Type Type Clinicians Facility Department 2019 Outpatient ZEYAD ZEYAD [id number] 14:48:56 2019-07-13 Outpatient ZEYAD ZEYAD [id number] 06:23:55 2019-06-15 Outpatient ZEYAD ZEYAD [id number] 04:57:59 2019-06-15 Outpatient ZEYAD ZEYAD [id number] 04:57:17 2019-06-08 Outpatient ZEYAD ZEYAD [id number] 10:45:59 2019-06-07 Outpatient ZEYAD ZEYAD [id number] 14:11:36 2019-03-04 Outpatient ZEYAD ZEYAD [id number] 19:02:11 2009-07-04 IMP ZEYAD ZEYAD [id number] 00:00:00 2020-02-13 2020-02-13 Outpatient [facility] [id number] 00:00:00 00:00:00 2018-04-05 2018-04-05 Outpatient [facility] [id number] 11:25:10 16:47:55 2018-04-05 2018-04-05 Outpatient RODERICK GANT [id number] 11:25:10 16:47:55 LISETTE 2018-03-23 2018-03-23 Outpatient RODERICK VAUGHN [id number] 14:53:06 23:59:00 2018-03-23 2018-03-23 Outpatient RODERICK GANT [id number] 14:53:06 14:53:06 LISETTE Plan of Treatment Planned Activity Planned Date Details Comments Future Scheduled Test [code = ] Future Scheduled Test [code = ] Future Scheduled Test [code = ] Future Scheduled Test [code = ] Future Scheduled Test [code = ] Future Scheduled Test [code = ] Future Scheduled Test [code = ] Future Scheduled Test [code = ] Future Scheduled Test [code = ] Future Scheduled Test [code = ] Future Scheduled Test [code = ] Social History Social Habit Start Date Stop Date Comments Tobacco use and exposure 2018-04-05 00:00:00 2018-04-05 00:00:00 Smoking Status Start Date Stop Date Never smoker 2018-04-05 00:00:00 Vital Signs Vital Name Observation Time Observation Value Comments Systolic blood pressure 2018-04-05 11:33:00 130 mm[Hg] Diastolic blood pressure 2018-04-05 11:33:00 98 mm[Hg] Heart rate 2018-04-05 11:33:00 99 /min Body temperature 2018-04-05 11:33:00 36.39 Pennie Body height 2018-04-05 11:33:00 154.9 cm Body weight 2018-04-05 11:33:00 59.875 kg BMI 2018-04-05 11:33:00 24.96 kg/m2 Systolic blood pressure 2018-04-05 11:33:00 130 mm[Hg] Diastolic blood pressure 2018-04-05 11:33:00 98 mm[Hg] Heart rate 2018-04-05 11:33:00 99 /min Body temperature 2018-04-05 11:33:00 36.39 Pennie Body height 2018-04-05 11:33:00 154.9 cm Body weight 2018-04-05 11:33:00 59.875 kg BMI 2018-04-05 11:33:00 24.96 kg/m2 Body height 2019 14:48:56 62.0 in Body weight 2019 14:48:56 110 lb Body height 2019-07-13 06:23:55 62.0 in Body weight 2019-07-13 06:23:55 110 lb Body height 2019-06-15 04:57:59 62.0 in Body weight 2019-06-15 04:57:59 110 lb Body height 2019-06-15 04:57:18 62.0 in Body weight 2019-06-15 04:57:18 110 lb Body height 2019-06-08 10:45:59 62.0 in Body weight 2019-06-08 10:45:59 110 lb Body height 2019-06-07 14:11:36 62.0 in Body weight 2019-06-07 14:11:36 110 lb Body height 2019-03-04 19:02:11 62.0 in Body weight 2019-03-04 19:02:11 110 lb Body height 2019-02-05 10:18:52 62.0 in Body weight 2019-02-05 10:18:52 110 lb Body height 2019-01-18 14:12:01 62.0 in Body weight 2019-01-18 14:12:01 110 lb Body height 2018-12-03 18:33:21 62.0 in Body weight 2018-12-03 18:33:21 110 lb Body height 2018-11-24 23:32:44 24.0 in Body weight 2018-11-24 23:32:44 5 lb Body height 2018-11-24 23:32:43 62.0 in Body weight 2018-11-24 23:32:43 110 lb Hospital Discharge Instructions Patient Instructions Shawna Quispe PA - 04/05/2018 11:45 AM EDT Formatting of this note mightbe different from the original. Dear Edel vidales, Thank you for taking the time to visit me today. It is a pleasure to help take care of Blaire. Please stay in touch, and let us know if any concerns arise. Should you have any problems, questions or concerns, please do not hesitate to contact us. Our office numbers are listed below. Alternatively, you can also connect with us via the [email or web address] application using the following link: [email or web address] When you receive a request toprovide feedback on your visit, please take the time to let us know how we are doing, and please share your experience with your baccarat manager. We value your feedback and it helps us to continue to improve in our delivery of healthcare to you and our future patients. I was assisted today by HERBERT Loving and Zara Dias RN. Thank you again for coming to [place] and trusting us with your care. Sincerely , Dr. Lisette Gant MD OFFICE NUMBERS: Mckayla Nguyen ([facility]) : [phone], ext [phone] in [facility]
== END ==
LOC: RAD 07:50
PROVIDERS: ATTEND Physician Assistant Surgical
DX: G91.0 Communicating hydrocephalus (principal)
CPT/HCPCS: 70450